=== PATIENT | male | born 1940 | race Caucasian/White ===

== ENCOUNTER 2021-05-07 14:31 | Emergency (ER) | payer MEDICARE, MEDICAID ==
[~2021-05-07] VITALS: Ht 165.1 cm; Wt 86.0 kg
[2021-05-07 14:34] VITALS: BP 137/88
[2021-05-07] MEDS ORDERED: TETANUS, DIPHTHERIA, PERTUSSIS VAC/PF 0.5ML (>10YR OLD) IM ONE (15:30)
[2021-05-07] MEDS ORDERED: NAPR-679 PO (16:30)
[2021-05-07] MEDS ORDERED: TRAM50TA3 MT (16:30)
== END 2021-05-07 17:18 | disposition home or self-care (01) ==
LOC: ER 14:31
DX: S05.12XA Contusion of eyeball and orbital tissues, left eye, initial encounter (principal); S02.2XXA Fracture of nasal bones, initial encounter for closed fracture; H11.32 Conjunctival hemorrhage, left eye; E11.9 Type 2 diabetes mellitus without complications; I10 Essential (primary) hypertension; Y08.89XA Assault by other specified means, initial encounter; Y93.9 Activity, unspecified; Y92.9 Unspecified place or not applicable
CPT/HCPCS: 70480; 90471; 90715; 99285